=== PATIENT | female | born 1995 | race Caucasian/White ===

== ENCOUNTER 2017-09-27 15:35 | Inpatient (IN) | payer MEDICAID ==
[2017-09-27] MEDS ORDERED: METHYLERGONOVINE 0.2 MG INJ IM (19:30)
[2017-09-27] MEDS ORDERED: AMPICILLIN 2 GM/NS (PMX) 100 ML IV (19:30)
[2017-09-27] MEDS ORDERED: MISOPROSTOL 200 MCG TAB PR (19:30)
[2017-09-27] MEDS ORDERED: OXYTOCIN 30 UNITS/LR 500 ML IV ×2 (19:30)
[2017-09-27] MEDS ORDERED: CARBOPROST 250 MCG INJ IM (19:30)
[2017-09-27] MEDS ORDERED: BUTORPHANOL 2 MG INJ IV ×2 (19:30)
[2017-09-27] MEDS ORDERED: LIDOCAINE 1% (MPF) 30 ML INJ INJ (19:30)
[2017-09-27] MEDS: LACTATED RINGER'S 1,000 ML IV (21:08)
[2017-09-27 21:20] LABS: ADD MAN DIFF? NO
[2017-09-27 21:24] LABS: WHITE BLOOD COUNT 11.3 10^3/ul (4.8-10.8)
[2017-09-27 21:24] LABS: BASOPHILS % 0.4 % (0.0-2.0); EOSINOPHILS # 0.2 10^3/ul (0.0-0.5); EOSINOPHILS % 1.5 % (0.0-7.0); HEMATOCRIT 37.5 % (37.0-47.0); HEMOGLOBIN 12.5 g/dl (12.0-16.0); LYMPHOCYTES # 2.6 10^3/ul (0.8-2.9); LYMPHOCYTES % 22.6 % (15.0-51.0); MEAN CORPUSCULAR HEMOGLOBIN 28.7 pg (29.0-33.0); MEAN CORPUSCULAR HGB CONC 33.3 g/dl (32.0-37.0); MEAN CORPUSCULAR VOLUME 86.2 fl (82.0-101.0); MEAN PLATELET VOLUME 10.6 fl (7.4-10.4); MONOCYTE # 0.7 10^3/ul (0.3-0.9); MONOCYTES % 6.3 % (0.0-11.0); NEUTROPHIL # 7.7 10^3/ul (1.6-7.5); NEUTROPHILS % 67.9 % (39.0-77.0); PLATELET COUNT 231 10^3/UL (140-415); RED BLOOD COUNT 4.35 10^6/ul (4.20-5.40); RED CELL DISTRIBUTION WIDTH 14.1 % (11.5-14.5)
[2017-09-27 21:54] LABS: INR 0.88; PARTIAL THROMBOPLASTIN TIME 25.1 Sec (25.0-35.0); PT RATIO 0.9
[2017-09-27 22:14] LABS: RAPID PLASMA REAGIN NONREACTIVE (NR)
[2017-09-27] MEDS: OXYTOCIN 30 UNITS/LR 500 ML IV (22:59)
[2017-09-27] MEDS ORDERED: AMPICILLIN 1 GM/NS (PMX) 50 ML IV (23:30)
[2017-09-27 23:47] LABS: AMPHETAMINE/METHAMPHETAMINE Negative (NEGATIVE); BARBITURATES Negative (NEGATIVE); BENZODIAZEPINES Negative (NEGATIVE); CANNABINOIDS Negative (NEGATIVE); COCAINE Negative (NEGATIVE); OPIATES Negative (NEGATIVE)
[2017-09-28] MEDS: LACTATED RINGER'S 1,000 ML IV ×3 (00:23→10:23)
[2017-09-28] MEDS ORDERED: FENTAnyl 2MCG/ML-ROPIV 0.2% 100 ML (01:02)
[2017-09-28] MEDS ORDERED: NALOXONE (0.4 MG/ML) INJ IV (01:30)
[2017-09-28] MEDS ORDERED: EPHEDrine SULFATE 50 MG/5 ML SYG IV (01:30)
[2017-09-28] MEDS ORDERED: ONDANSETRON 4 MG INJ IV ×2 (01:30→17:00)
[2017-09-28] MEDS: FENTAnyl 2MCG/ML-ROPIV 0.2% 100 ML BAG EPI (01:59)
[2017-09-28] MEDS ORDERED: IBUPROFEN 600 MG TAB PO (02:00)
[2017-09-28] MEDS: DIPHENHYDRAMINE 50 MG INJ IV (04:10)
[2017-09-28] MEDS: AMPICILLIN 1 GM/NS (PMX) 50 ML IVPB ×2 (07:55→11:38)
[2017-09-28] MEDS ORDERED: AMPICILLIN 1 GM/NS (PMX) 50 ML IVPB (09:00)
[2017-09-28] MEDS ORDERED: GENTAMICIN IV PER PHARMACY XX (13:30)
[2017-09-28] MEDS: CLINDAMYCIN 900 MG/D5W (PMX) 50 ML IVPB ×2 (13:56→21:47)
[2017-09-28] MEDS: ACETAMINOPHEN 500 MG TAB PO (13:56)
[2017-09-28 14:02] LABS: CBV Base Excess -5.1 mmol/L; CBV COHb 1.7 %; CBV Oxygen Sat 67.1 mmHG; CBV Total Hemglobin 16.8 g/dl; Fraction OxyHgb Cord Venous 65.4 %; MODE ROOM AIR; MetHgb Cord Venous 0.9 %; Sample Type Blood venous; Site CORD
[2017-09-28] MEDS: OXYTOCIN 30 UNITS/LR 500 ML IV ×2 (14:05→23:57)
[2017-09-28] MEDS: GENTAMICIN 120 MG/NS (PMX) 100 ML IVPB ×2 (15:15→23:55)
[2017-09-28] MEDS ORDERED: METHYLERGONOVINE 0.2 MG INJ IM (17:00)
[2017-09-28] MEDS ORDERED: CARBOPROST 250 MCG INJ IM (17:00)
[2017-09-28] MEDS ORDERED: ZOLPIDEM 5 MG TAB PO (17:00)
[2017-09-28] MEDS ORDERED: morphine 2 MG INJ IV (17:00)
[2017-09-28] MEDS ORDERED: HYDROCODONE/APAP (5/325) TAB PO (17:00)
[2017-09-28] MEDS ORDERED: MISOPROSTOL 200 MCG TAB PR (17:00)
[2017-09-28] MEDS ORDERED: OXYTOCIN 30 UNITS/LR 500 ML IV (17:00)
[2017-09-28] MEDS ORDERED: DIPHENHYDRAMINE 25 MG CAP PO (17:00)
[2017-09-28] MEDS: WITCH HAZEL/GLYCERIN PAD PR (17:52)
[2017-09-28] MEDS: LANOLIN 7 GM TUBE TOP (17:52)
[2017-09-28] MEDS: IBUPROFEN 800 MG TAB PO ×2 (17:52→23:55)
[2017-09-28] MEDS: CEPHALEXIN 500 MG CAP PO ×2 (17:53→23:55)
[2017-09-28 18:11] LABS: HEMATOCRIT 34.9 % (37.0-47.0); HEMOGLOBIN 11.6 g/dl (12.0-16.0)
[2017-09-28] MEDS: SENNA/DOCUSATE NA (8.6MG/50MG) TAB PO (21:47)
[2017-09-29] MEDS: CLINDAMYCIN 900 MG/D5W (PMX) 50 ML IVPB ×2 (05:37→13:49)
[2017-09-29] MEDS: IBUPROFEN 800 MG TAB PO ×4 (05:37→23:34)
[2017-09-29] MEDS: CEPHALEXIN 500 MG CAP PO ×4 (05:37→23:34)
[2017-09-29] MEDS: GENTAMICIN 120 MG/NS (PMX) 100 ML IVPB ×2 (06:52→13:49)
[2017-09-29] MEDS: SENNA/DOCUSATE NA (8.6MG/50MG) TAB PO ×2 (08:33→21:02)
[2017-09-29 10:19] LABS: ADD MAN DIFF? NO
[2017-09-29 10:22] LABS: BASOPHILS % 0.3 % (0.0-2.0); EOSINOPHILS # 0.2 10^3/ul (0.0-0.5); HEMATOCRIT 29.8 % (37.0-47.0); LYMPHOCYTES # 2.1 10^3/ul (0.8-2.9); LYMPHOCYTES % 14.2 % (15.0-51.0); MEAN CORPUSCULAR HEMOGLOBIN 28.9 pg (29.0-33.0); MEAN CORPUSCULAR HGB CONC 33.6 g/dl (32.0-37.0); MEAN CORPUSCULAR VOLUME 86.1 fl (82.0-101.0); MEAN PLATELET VOLUME 10.3 fl (7.4-10.4); MONOCYTE # 0.9 10^3/ul (0.3-0.9); MONOCYTES % 6.2 % (0.0-11.0); NEUTROPHIL # 11.2 10^3/ul (1.6-7.5); NEUTROPHILS % 77.4 % (39.0-77.0); PLATELET COUNT 177 10^3/UL (140-415); RED BLOOD COUNT 3.46 10^6/ul (4.20-5.40); RED CELL DISTRIBUTION WIDTH 14.4 % (11.5-14.5)
[2017-09-29 10:22] LABS: WHITE BLOOD COUNT 14.5 10^3/ul (4.8-10.8)
[2017-09-29] MEDS: INFLUENZA VIRUS VACCINE 0.5 ML SYG IM* (15:07)
[2017-09-30] MEDS: CEPHALEXIN 500 MG CAP PO ×2 (05:32→11:43)
[2017-09-30] MEDS: IBUPROFEN 800 MG TAB PO ×2 (05:32→11:43)
[2017-09-30] MEDS: VARICELLA VACCINE LIVE/PF 1,350 UNIT/0.5 ML ML SC* (09:00)
[2017-09-30] MEDS: MEASLES,MUMPS,RUBELLA VACCINE INJ SC* (09:00)
[2017-09-30] MEDS: SENNA/DOCUSATE NA (8.6MG/50MG) TAB PO (09:23)
[2017-09-30] MEDS: DIPHTH/TET/ACEL PERTUSS (ADULT) 0.5 ML VIAL IM* (09:24)
== END 2017-09-30 14:30 | disposition home or self-care (01) | DRG 775 ==
LOC: OBT 15:35 → L-D 15:37 → PP1 09-28 16:07 → OBT 18:48 → L-D 18:48
PROVIDERS: Obstetrics & Gynecology
PROC: 10D07Z6 Extraction of Products of Conception, Vacuum, Via Natural or Artificial Opening (ICD-10-PCS; principal; 2017-09-28)
PROC: 0KQM0ZZ Repair Perineum Muscle, Open Approach (ICD-10-PCS; 2017-09-28)
DX: O70.1 Second degree perineal laceration during delivery (principal); Z37.0 Single live birth; O76 Abnormality in fetal heart rate and rhythm complicating labor and delivery; Z3A.39 39 weeks gestation of pregnancy
CPT/HCPCS: 36415; 62319; 76815; 80307; 82803; 85014; 85018; 85025; 85610; 85730; 86592; 86900; 86901; 87070; 87075; 88307; 90686; 99464